=== PATIENT | male | born 1965 | race Caucasian/White ===

== ENCOUNTER 2020-08-09 09:32 | Emergency (ER) | payer OTHER, SELFPAY ==
--- NOTE | ~2020-08-09 | US_ITS ---
EXAMINATION: US VENOUS ULTRASOUND WITH DOPPLER LOWER EXTREMITY, RIGHT CLINICAL INFORMATION: Right calf pain. Assess for occult DVT. COMPARISON: None TECHNIQUE: Ultrasound of the deep veins is performed from the hip to the calf with compression sonography and color and pulse Doppler assessment. Spectral analysis with color-flow imaging is performed. FINDINGS: There is normal venous compression and respiratory variation and augmented flow in the visualized deep veins. The visualized common femoral vein, superficial femoral vein, profunda femoral vein, popliteal vein, and the trifurcation region shows no evidence of deep venous thrombosis. Peroneal veins not visualized. No visible popliteal fossa cyst. US/US venous duplex LE RT IMPRESSION: 1. No DVT demonstrated in the right lower extremity. 2. Peroneal vein is not visualized. If the patient's symptoms persist, followup ultrasound in 5 days 7 days might be of value to exclude proximal propagation from a non-visualized calf vein.
[2020-08-09 09:47] VITALS: BP 101/37; PULSE 78; RESP 16; TEMP 36.8; O2SAT 98; BMI 23.6
--- NOTE | 2020-08-09 10:18 | PC.NURSE ---
PT USES MOTORIZED WC AT BASELINE, ABLE TO INDEPENDENTLY TRANSFER TO STRETCHER
--- NOTE | 2020-08-09 12:02 | ED.GENADULT ---
HPI - General Adult General Chief complaint: Extremity Injury, Lower <ALDAIR Peters Last Filed: 08/13/20 09:52> Stated complaint: rt leg pain <ALDAIR Peters Last Filed: 08/13/20 09:52> Time Seen by Provider: 08/09/20 10:04 <ALDAIR Peters Last Filed: 08/13/20 09:52> History of Present Illness HPI narrative: Patient complains of right calf pain that began a few days ago with no known injury he denies any redness no wound no fever, pain is mild and only with walking, no shortness of breath or chest pain <ALDAIR Peters Last Filed: 08/13/20 09:52> Related Data Allergies/adverse reactions: Allergies Allergy/AdvReac Type Severity Reaction Status Date / Time dulaglut[facility] [[facility] AdvReac Unknown Verified 08/09/20 09:47 <ALDAIR Peters Last Filed: 08/13/20 09:52> Review of Systems Review of Systems: Positive for right leg pain Negatives are no fever no chills no dizziness no weakness no headache no chest pain no shortness of breath no abdominal pain no nausea vomiting, no other extremity pain, no rash <ALDAIR Peters Last Filed: 08/13/20 09:52> Yes all other systems are reviewed and are negative <ALDAIR Peters Last Filed: 08/13/20 09:52> [facility] Past Medical History Source: nursing notes reviewed <ALDAIR Peters Last Filed: 08/13/20 09:52> Medical History: Medical History (Updated 08/10/20 @ 00:01 by Jassi Muhammad) A-fib Chronic kidney disease Diabetes <ALDAIR Peters Last Filed: 08/13/20 09:52> Social History Social History: Social History Advance Directives: Yes Advance Directives Information Provided: Yes Advance Directives on File: No <ALDAIR Peters Last Filed: 08/13/20 09:52> Physical Exam Vital Signs: Vital Signs: Last Vital Signs Temp 98.3 F 08/09/20 09:47 Pulse 78 08/09/20 09:47 Resp 16 08/09/20 09:47 BP 101/37 L 08/09/20 09:47 Pulse Ox 98 08/09/20 09:47 Body Mass Index 23.6 <ALDAIR Peters - Last Filed: 08/13/20 09:52> Vital Signs: Last Vital Signs Temp 98.3 F 08/09/20 09:47 Pulse 78 08/09/20 09:47 Resp 16 08/09/20 09:47 BP 101/37 L 08/09/20 09:47 Pulse Ox 98 08/09/20 09:47 Body Mass Index 23.6 <Zach Conroy MD - Last Filed: 09/11/20 06:24> General appearance no acute distress, comfortable and cooperative The head is normocephalic atraumatic The neck is supple Chest is clear to auscultation bilateral full symmetric equal breath sounds, no chest wall plain, no pleuritic pain The heart no murmurs The abdomen soft nontender Extremity exam shows the right calf does not appear to be swollen, there are no wounds no redness no signs of cellulitis, there is full range of motion in all joints, there is tenderness to the posterior knee and the calf area of the right leg Both lower extremities are neurovascular intact Skin no rash Neuro no focal motor or sensory deficit <ALDAIR Peters - Last Filed: 08/13/20 09:52> Course Course Course Narrative: Ultrasound was negative did not show any clot, patient had no shortness of breath, no evidence of cellulitis and was discharged with recommendation that if pain persists he may not need a repeat confirmatory ultrasound within 1-2 weeks <ALDAIR Peters - Last Filed: 08/13/20 09:52> I have reviewed the chart <Zach Conroy MD - Last Filed: 09/11/20 06:24> Discharge Plan Discharge Clinical Impression: Lower extremity pain, right <ALDAIR Peters - Last Filed: 08/13/20 09:52> Patient Disposition: Home, Self-Care <ALDAIR Peters Last Filed: 08/13/20 09:52> Additional Instructions: Ultrasound of the right leg did not show any blood clot If pain persists you may need a repeat ultrasound in 1 week to confirm that there is not a small developing clot, so follow with primary doctor Return any time any worse condition or any concerns <ALDAIR Peters Last Filed: 08/13/20 09:52> Interventions: ED Discharge Assessment Last Done: 08/09/20 12:39 <ALDAIR Peters - Last Filed: 08/13/20 09:52> Discharge Date/Time: 08/09/20 12:40 <ALDAIR Peters - Last Filed: 08/13/20 09:52>
== END 2020-08-09 12:40 | disposition home or self-care (01) ==
PROVIDERS: Emergency Provider Emergency Medicine; PCP Nurse Practitioner Family
DX: M79.661 Pain in right lower leg (principal); E11.22 Type 2 diabetes mellitus with diabetic chronic kidney disease; N18.9 Chronic kidney disease, unspecified; I48.91 Unspecified atrial fibrillation
CPT/HCPCS: 93971; 99284